=== PATIENT | female | born 1985 | race Caucasian/White ===

== ENCOUNTER → 2023-03-17 12:44 | Outpatient (BNVA) | payer OTHER, SELFPAY | PROVIDERS: PCP Internal Medicine; Visit Provider Physician Assistant Surgical ==

== ENCOUNTER 2023-05-03 08:31 | Outpatient (AMB) | payer OTHER, SELFPAY ==
--- OUTSIDE RECORDS SUMMARY | 2023-05-03 08:32 | XMS_ITS | Continuity of Care Document ---
Author Name Unknown Organization [facility] oenterology Address [address] [place] [address]- Care Team Providers Care Radiation Oncology Therapist Name Role Phone Paulo VILLAGRAN, Melissa Anand Primary Care Physician Encounter [facility] [place] Date(s): 10/26/20 - 11/25/20 [facility] [address] [place] [address]- Allergies, Adverse Reactions, Alerts Substance Reaction Severity Status NKA Active Immunizations Given and Recorded Vaccine Date Status Refusal Reason influenza virus vaccine, inactivated 1 06/27/12 Gi aristeo Boostrix (Tdap) (oldterm) 2 06/27/12 Given 1Admin Note: VIS sheet given 2Admin Note: VIS sheet given Medications Levsin 0.125 mg oral tablet 0.125 mg, 1, tablet, By Mouth, 2 times a day, PRN, # 40 tablet, Refills 1, Tot. Refills 1, Maintenance, for spasm, 08/13/20 16:47:00 EDT, Route to Pharmacy Electronically, [facility]/pharmacy #[id number], Partialfill upon patient request if the prescription is fo... Start Date: 08/13/20 Status: Ordered Protonix 40 mg oral delayed release tablet 1 tablet = 40 mg, By Mouth, Daily, # 30 tablet, 2 Refills, Maintenance, 08/13/20 16:47:00 EDT, EC Tablet, 161.5, cm, 04/02/20 11:23:00 EST, Height, 150.5, kg, 09/16/19 16:17:00 EDT, Dry Weight Start Date: 08/13/20 Status: Ordered Problem List Condition Effective Dates Status Health Status Inform ant Anxiety and depression(Confirmed) Active Gestational diabetes(Confirmed) Active Hemorrhoids(Confirmed) Active Left lumbar radiculopathy(Confirmed) Active atony of uterus w ith hemorrhage, delivered(Confirmed) 07/16/12 Active Vertigo(Confirmed) Active Social History Social History Type Response Smoking Status Never smoker; Tobacc o user in household: No entered on: 11/08/16 Sex
--- OUTSIDE RECORDS SUMMARY | 2023-05-03 08:32 | XMS_ITS | Continuity of Care Document ---
Author Name Unknown Organization [facility] ter Address [address] [place] [address]- Care Team Providers Care Grocery Checker Name Role Phone Elijah VALLE, Cristy I Primary Care Physician Encounter [facility] [place] Date(s): 09/16/19 - 09/16/[address] [address] Encounter Diagnosis Right upper quadrant pain(Final) - 09/16/19 Discharge Disposition: A-D/C Home Attending Physician: Manjeet Santiago DO Admitting Physician: Manjeet Santiago DO Referring Physician: Not on Staff, Referring MD Allergies, Adverse Reactions, Alerts Substance Reaction Severity Status NKA Active Immunizations Given and Recorded Vaccine Date Status Refusal Reason influenza virus vaccine, inactivated 1 06/27/12 Gi aristeo Boostrix (Tdap) (oldterm) 2 06/27/12 Given 1Admin Note: VIS sheet given 2Admin Note: VIS sheet given Medications Multivitamin Daily, 0 Refills, Maintenance, 04/10/19 17:04:53 EST Start Date: 04/10/19 Status: Ordered sertraline 50 mg oral tablet 1 tablet, By Mouth, Daily, # 30 tablet, 4 Refills, Maintenance, 08/28/19 12:11:00 EDT, [id number], 163, cm, 07/26/19 8:59:00 EST, Height, 130.6, kg, 04/10/19 16:58:00 EST, Dry Weight Start Date: 08/28/19 Status: Ordered Problem List Condition Effective Dates Status Health Status Inform ant Anxiety and depression(Confirmed) Active Gestational diabetes(Confirmed) Active Hemorrhoids(Confirmed) Active Left lumbar radiculopathy(Confirmed) Active atony of uterus w ith hemorrhage, delivered(Confirmed) 07/16/12 Active Vertigo(Confirmed) Active Vital Signs Most recent to oldest [Reference Range]: 1 2 3 Height 163 cm (09/16/19 4:17 PM) 163 cm (09/16/19 1:56 PM) Weight 150.5 kg (09/16/19 4:17 PM) 150.5 kg (09/16/19 1:56 PM) Oxygen Saturation [94-100 %] 99 % (09/16/19 4:17 PM) 100 % (09/16/19 1:56 PM) 100 % (09/16/19 1:53 PM) Pulse Rate [55-90 bpm] 76 bpm (09/16/19 4:17 PM) 112 bpm *H* (09/16/19 1:56 PM) 86 bpm (09/16/19 1:53 PM) Body Mass Index [18.5-24.99] 56.64 *>HHI* (09/16/19 4:17 PM) 56.64 *>HHI* (09/16/19 1:56 PM) Blood Pressure [90-138/55-84 mm Hg] 119/60mm Hg (09/16/19 4:17 PM) 134/82mm Hg (09/16/19 1:56 PM) Respiratory Rate [16-30 br/min] 20 br/min (09/16/19 4:17 PM) 18 br/min (09/16/19 1:56 PM) Temperature [96.8-100.4 DegF] 98.0 DegF (09/16/19 4:17 PM) 98.0 DegF (09/16/19 1:56 PM) Mode of Delivery (Oxygen) Room air (09/16/19 4:17 PM) Room air (09/16/19 1:56 PM) Room air (09/16/19 1:53 PM) Blood pressure sites Arm, left (09/16/19 4:17 PM) Arm, right (09/16/19 1:56 PM) Temperature Route Oral (09/16/19 4:17 PM) Oral (09/16/19 1:56 PM) Dry Weight 150.5 kg (09/16/19 4:17 PM) 150.5 kg (09/16/19 1:56 PM) Weight Obtained Via Standing scale (09/16/19 1:56 PM) Dry Weight Obtained Via Standing scale (09/16/19 1:56 PM) Social History Social History Type Response Smoking Status Never smoker; Tobacc o user in household: No entered on: 11/08/16 Sex
--- OUTSIDE RECORDS SUMMARY | 2023-05-03 08:32 | XMS_ITS | Continuity of Care Document ---
Author Name Unknown Organization [facility] oenterology Address Unknown Care Team Providers Care Fire Equipment Operator Name Role Phone Paulo VILLAGRAN, Melissa Anand Primary Care Physician Encounter [facility] [place] Date(s): 03/18/21 - 03/25/21 [facility] Encounter Diagnosis Anxiety and depression(Discharge Diagnosis) - 03/18/21 Abdominal pain(Discharge Diagnosis) - 03/18/21 Attending Physician: Daniella Tavares MD Admitting Physician: Daniella Tavares MD Referring Physician: Melissa Bates MD Allergies, Adverse Reactions, Alerts Substance Reaction Severity Status NKA Active Immunizations Given and Recorded Vaccine Date Status Refusal Reason influenza virus vaccine, inactivated 1 06/27/12 Gi aristeo Boostrix (Tdap) (oldterm) 2 06/27/12 Given 1Admin Note: VIS sheet given 2Admin Note: VIS sheet given Medications hyoscyamine 0.125 mg sublingual tablet 1 tablet = 0.125 mg, Sublingual, Every 4 hours, # 60 tablet, 1 Refills, Maintenance, 03/18/21 13:54:00 EDT, Tablet, [facility]/pharmacy #[id number], Partial fill upon patient request if the prescription is for a schedule II opioid drug., 162, cm, 10/09/20 8:02:00... Start Date: 03/18/21 Status: Ordered Protonix 40 mg oral delayed release tablet 1 tablet = 40 mg, By Mouth, Daily, # 30 tablet, 2 Refills, Maintenance, 03/18/21 13:53:00 EDT, EC Tablet, 162, cm, 10/09/20 8:02:00 EDT, Height, 145.1, kg, 10/09/20 8:02:00 EDT, Dry Weight Start Date: 03/18/21 Stop Date: 06/16/21 Status: Ordered Problem List Condition Effective Dates Status Health Status Inform ant Anxiety and depression(Confirmed) Active Gestational diabetes(Confirmed) Active Hemorrhoids(Confirmed) Active Left lumbar radiculopathy(Confirmed) Active atony of uterus w ith hemorrhage, delivered(Confirmed) 07/16/12 Active Vertigo(Confirmed) Active Diagnosis Diagnosis Type Effective Dates Health Status Clinical Service Informant Anxiety and depression Discharge Diagnosis 03/18/21 Non-Specified Abdominal pain Discharge Diagnosis 03/18/21 Non-Specified Social History Social History Type Response Smoking Status Never smoker; Tobacc o user in household: No entered on: 11/08/16 Sex
--- OUTSIDE RECORDS SUMMARY | 2023-05-03 08:32 | XMS_ITS | Continuity of Care Document ---
Author Name Unknown Organization [facility]enter[facility] Address [address] [place] [address]- Care Team Providers Care Hand Alterations Tailor Name Role Phone Paulo VILLAGRAN, Melissa Anand Primary Care Physician En[place] [facility] [place] Date(s): 09/09/20 - 09/16/20 [facility] Gastroenterology [address] [place] [address]- Attending Physician: Daniella Tavares MD Admitting Physician: [...] 08/13/20 16:47:00 EDT, Route to Pharmacy Electronically, [facility]/pharmacy #[id number], Partialfill upon patient request if the prescription is fo... Start Date: 08/13/20 Status: Ordered Protonix 40 mg oral delayed release tablet 1 tablet = 40 mg, By Mouth, Daily, # 30 tablet, 2 Refills, Maintenance, 08/13/20 16:47:00 EDT, EC Tablet, 161.5, cm, 04/02/20 11:23:00 EST, Height, 150.5, kg, 09/16/19 16:17:00 EDT, Dry Weight Start Date: 3/25/21 Status: Ordered Problem List Condition Effective Dates Status Health Status Inform ant Anxiety and depression(Confirmed) Active Gestational diabetes(Confirmed) Active Hemorrhoids(Confirmed) Active Left lumbar radiculopathy(Confirmed) Active atony of uterus w ith hemorrhage, delivered(Confirmed) 07/16/12 Active Vertigo(Confirmed) Active Social History Social History Type Response Smoking Status Never smoker; Tobacc o user in household: No entered on: 11/08/16 Sex
--- OUTSIDE RECORDS SUMMARY | 2023-05-03 08:32 | XMS_ITS | Continuity of Care Document ---
Author Name Unknown Organization [facility] oenterology Address [address] [place] [address]- Care Team Providers Care Mineral Economist Name Role Phone Paulo VILLAGRAN, Melissa Anand Primary Care Physician [place] [facility] [place] - 12/18/20 [facility] [address] [place] [address]- Attending Physician: Daniella Tavares MD Admitting Physician: [...] 08/13/20 16:47:00 EDT, Route to Pharmacy Electronically, [facility]/pharmacy #[id number], Partialfill upon patient request if the [...]
--- OUTSIDE RECORDS SUMMARY | 2023-05-03 08:32 | XMS_ITS | Continuity of Care Document ---
Author Name Unknown Organization [facility] ter Address [address] [place] [address]- Care Team Providers Care Jackscrew Worker Name Role Phone Sebastien VALLE, Aranza Mohan Primary Care Physician Encounter [facility] [place] Date(s): 06/14/21 - 06/14/[address] [address]- Encounter Diagnosis COVID-19(Final) - 06/14/21 COVID-19(Final) - 06/14/21 Discharge Disposition: A-D/C Home Attending Physician: Dagoberto Casas MD Admitting Physician: Dagoberto Casas MD Referring Physician: Not on Staff, Referring MD Allergies, Adverse Reactions, Alerts No Known Allergies Immunizations Given and Recorded Vaccine Date Status Refusal Reason influenza virus vaccine, inactivated 1 06/27/12 Gi aristeo Boostrix (Tdap) (oldterm) 2 06/27/12 Given 1Admin Note: VIS sheet given 2Admin Note: VIS sheet given Medications nabumetone 750 mg oral tablet 1 tablet, By Mouth, 2 times a day, # 60 tablet, 0 Refills, [id number], 163, cm, 04/28/21 9:26:00 EST, Height, 136.1, kg, 04/22/21 0:27:00 EST, Dry Weight Start Date: 05/27/21 Status: Ordered pantoprazole 40 mg oral delayed release tablet 1 tablet, By Mouth, Daily, # 90 tablet, 3 Refills, 163, cm, 04/28/21 9:26:00 EST, Height, 136.1, kg, 04/22/21 0:27:00 EST, Dry Weight Start Date: 06/09/21 Status: Ordered Problem List Condition Effective Dates Status Health Status Inform ant Anxiety and depression(Confirmed) Active Gestational diabetes(Confirmed) Active Hemorrhoids(Confirmed) Active Left lumbar radiculopathy(Confirmed) Active atony of uterus w ith hemorrhage, delivered(Confirmed) 07/16/12 Active Severe obesity(Confirmed) Active Vertigo(Confirmed) Active Results Radiology Reports * Exam Date Time Procedure Performing Provider Status 06/14/21 12:12 PM Chest Portable Bein , Delma; Auth (Evelio ified) Notes: (Chest Portable) Reason For Exam: Chest Pain;Other: RESULT: Chest Portable Chest Portable CLINICAL INDICATION: Hx of Present Illness: here for palps, covid+ on the and since then has had some increased sob. COMPARISON: None available. FINDINGS: The cardiac silhouette is within normal limits. Hilar and mediastinal contours are normal. The lungs are clear. There is no pleural effusion, pneumothorax, or evidence of CHF. No acute osseous abnormality is noted. IMPRESSION: No acute cardiopulmonary process. WSN: [id number] Ordering Physician: Silvestre To Dictated By: Candi Miller MD Dictated Date/Time: 06/14/21 12:24 p Reviewed By: Candi Miller MD Signed By: Candi Miller MD Signed Date/Time: 06/14/21 12:24 pm Transcribed By: LEWIS Transcribed Date/Time: 06/14/21 12:24 pm Vital Signs Most recent to oldest [Reference Range]: 1 2 3 Oxygen Saturation [94-100 %] 98 % (06/14/21 10:24 AM) 100 % (06/14/21 10:04 AM) 100 % (06/14/21 9:56 AM) Pulse Rate [55-90 bpm] 99 bpm *H* (06/14/21 10:24 AM) 97 bpm *H* (06/14/21 10:04 AM) 110 bpm *H* (06/14/21 9:56 AM) Blood Pressure [90-138/55-84 mm Hg] 136/90mm Hg (06/14/21 10:24 AM) 146/87mm Hg *H* (06/14/21 10:04 AM) Respiratory Rate [16-30 br/min] 20 br/min (06/14/21 10:24 AM) 20 br/min (06/14/21 10:04 AM) 18 br/min (06/14/21 9:56 AM) Temperature [96.8-100.4 DegF] 98.9 DegF (06/14/21 10:24 AM) 98.5 DegF (06/14/21 10:04 AM) Mode of Delivery (Oxygen) Room air (06/14/21 10:24 AM) Room air (06/14/21 10:04 AM) Room air (06/14/21 9:56 AM) Blood pressure sites Arm, left (06/14/21 10:24 AM) Arm, right (06/14/21 10:04 AM) Temperature Route Oral (06/14/21 10:24 AM) Oral (06/14/21 10:04 AM) Social History Social History Type Response Smoking Status Never smoker; Tobacc o user in household: No entered on: 11/08/16 Sex
--- OUTSIDE RECORDS SUMMARY | 2023-05-03 08:32 | XMS_ITS | Continuity of Care Document ---
Author Name Unknown Organization [facility] Address [address] [place] [address]- Care Team Providers Care Fiberglass Boat Assembly Supervisor Name Role Phone Melissa Bates MD Primary Care Physician Encounter [facility] [place] Date(s): 10/09/20 - 10/09/[address] [address]- Discharge Disposition: A-D/C Home Attending Physician: Daniella Tavares MD Admitting Physician: Daniella Tavares MD Referring Physician: Daniella Tavares MD Allergies, Adverse Reactions, Alerts Substance Reaction [...] 08/13/20 16:47:00 EDT, Route to Pharmacy Electronically, [facility]/pharmacy #[id number], Partialfill upon patient request if the [...] oldest [Reference Range]: 1 2 3 Height 162 cm (10/09/20 8:02 AM) Weight 145.1 kg (10/09/20 8:02 AM) Oxygen Saturation [94-100 %] 96 % (10/09/20 10:10 AM) 94 % (10/09/20 10:05 AM) 94 % (10/09/20 10:00 AM) Pulse Rate [55-90 bpm] 92 bpm *H* (10/09/20 8:02 AM) Body Mass Index [18.5-24.99] 55.29 *>HHI* (10/09/20 8:02 AM) Blood Pressure [90-138/55-84 mm Hg] 108/84mm Hg (10/09/20 10:10 AM) 110/66mm Hg (10/09/20 10:05 AM) 113/66mm Hg (10/09/20 10:00 AM) Respiratory Rate [16-30 br/min] 22 br/min (10/09/20 10:10 AM) 20 br/min (10/09/20 10:05 AM) 21 br/min (10/09/20 10:00 AM) Temperature [96.8-100.4 DegF] 98.2 DegF (10/09/20 8:02 AM) Mode of Delivery (Oxygen) Room air (10/09/20 10:35 AM) Room air (10/09/20 8:02 AM) Blood pressure sites Arm, left (10/09/20 9:55 AM) Arm, left (10/09/20 8:02 AM) Temperature Route Temporal (10/09/20 8:02 AM) Dry Weight 145.1 kg (10/09/20 8:02 AM) Weight Obtained Via Standing scale (10/09/20 8:02 AM) Dry Weight Obtained Via Standing scale (10/09/20 8:02 AM) Social History Social History Type Response Smoking Status Never smoker; Tobacc o user in household: No entered on: 11/08/16 Sex
--- OUTSIDE RECORDS SUMMARY | 2023-05-03 08:32 | XMS_ITS | Continuity of Care Document ---
Author Name Unknown Organization [facility] oenterology Address [address] [place] [address]- Care Team Providers Care Shift Nurse Manager Name Role Phone Paulo VILLAGRAN, Melissa Anand Primary Care Physician Encounter [facility] [place] Date(s): 11/18/20 - 12/18/20 [facility] G[facility]enterology [address] [place] [address]- Attending Physician: Jeanette Rees Admitting Physician: Jeanette Rees Referring Physician: AdmtrJeanette Allergies, Adverse Reactions, Alerts Substance Reaction Severity [...] 16:47:00 EDT, Route to Pharmacy Electronically, [facility]/pharmacy #[id number], Partialfill upon patient request if the [...]
--- OUTSIDE RECORDS SUMMARY | 2023-05-03 08:32 | XMS_ITS | Continuity of Care Document ---
Author Name Unknown Organization [facility] Address [address] [place] [address]- Care Team Providers Care Mold Capper Helper Name Role Phone Paulo VILLAGRAN, Melissa Anand Primary Care Physician Encounter [facility] [place] Date(s): 10/28/20 - 12/06/[address] [address]- Attending Physician: Daniella Tavares MD Admitting Physician: Daniella Tavares MD Allergies, Adverse Reactions, [...] 08/13/20 16:47:00 EDT, Route to Pharmacy Electronically, [facility]/pharmacy #[id number], Partialfill upon patient request if [...]
--- OUTSIDE RECORDS SUMMARY | 2023-05-03 08:33 | XMS_ITS | Continuity of Care Document ---
Author Name Unknown Organization [facility] oenterology Address Unknown Care Team Providers Care Manager Supply Chain Planning Name Role Phone Paulo VILLAGRAN, Melissa Anand Primary Care Physician Encounter [facility] [place] Date(s): 03/18/21 - 04/17/21 [facility] Attending Physician: Jeanette Rees Admitting Physician: AdmtrJeanette Referring Physician: Admtr, Jeanette Allergies, Adverse Reactions, Alerts Substance Reaction Severity [...] 1 Refills, Maintenance, 03/18/21 13:54:00 EDT, Tablet, [facility]/pharmacy #[id number], Partial fill upon patient request if [...]
--- OUTSIDE RECORDS SUMMARY | 2023-05-03 08:33 | XMS_ITS | Continuity of Care Document ---
Author Name Unknown Organization [facility] Address [address] [place] [address]- Care Team Providers Care Financial Aid Administrator Name Role Phone Sebastien VALLE, Aranza Mohan Primary Care Physician Encounter [facility] [place] Date(s): 03/16/21 - 05/30/[address] [address]- Attending Physician: Daniella Tavares MD Admitting Physician: [...] a day, # 60 tablet, 0 Refills, [id number], 163, cm, 04/28/21 9:26:00 EST, Height, 136.1, kg, 04/22/21 0:27:00 EST, Dry Weight Start Date: 05/27/21 Status: Ordered Problem List Condition Effective Dates Status Health Status Inform ant Anxiety and depression(Confirmed) Active Gestational diabetes(Confirmed) Active Hemorrhoids(Confirmed) Active Left lumbar radiculopathy(Confirmed) Active atony of uterus w ith hemorrhage, delivered(Confirmed) 07/16/12 Active Severe obesity(Confirmed) Active Vertigo(Confirmed) Active Social History Social History Type Response Smoking Status Never smoker; Tobacc o user in household: No entered on: 11/08/16 Sex
--- OUTSIDE RECORDS SUMMARY | 2023-05-03 08:33 | XMS_ITS | Continuity of Care Document ---
Author Name Unknown Organization [facility] oenterology Address [address] [place] [address]- Care Team Providers Care Software Quality Tester Name Role Phone Paulo VILLAGRAN, Melissa Anand Primary Care Physician En[place] [facility] [place] Date(s): 10/05/20 - 11/04/20 [facility] [address] [place] [address]- Allergies, Adverse Reactions, Alerts Substance Reaction Severity [...] 08/13/20 16:47:00 EDT, Route to Pharmacy Electronically, [facility]/pharmacy #[id number], Partialfill upon patient request if the prescription [...]
--- OUTSIDE RECORDS SUMMARY | 2023-05-03 08:33 | XMS_ITS | Continuity of Care Document ---
Author Name Unknown Organization [facility] ter Address [address] [place] [address]- Care Team Providers Care Cutch Cleaner Name Role Phone Not on Staff, PCP Primary Care Physician Unavail able Encounter [facility] Date(s): 04/20/21 - 04/20/[address] [address]- Discharge Disposition: A-D/C Walkout Attending Physician: Not on Staff, Attending MD Admitting Physician: Not on Staff, Admitting MD Referring Physician: Not on Staff, Referring [...] 1 Refills, Maintenance, 03/18/21 13:54:00 EDT, Tablet, [facility]/pharmacy #[id number], Partial fill upon patient request [...] 07/16/12 Active Severe obesity(Confirmed) Active Vertigo(Confirmed) Active Vital Signs Most recent to oldest [Reference Range]: 1 2 Height 163 cm (04/20/21 5:50 PM) 163 cm (04/20/21 4:55 PM) Weight 136.5 kg (04/20/21 5:50 PM) 136.5 kg (04/20/21 4:55 PM) Oxygen Saturation [94-100 %] 99 % (04/20/21 5:50 PM) Pulse Rate [55-90 bpm] 104 bpm *H* (04/20/21 5:50 PM) Body Mass Index [18.5-24.99] 51.38 *>HHI* (04/20/21 5:50 PM) 51.38 *>HHI* (04/20/21 4:55 PM) Blood Pressure [90-138/55-84 mm Hg] 132/ 80mm Hg (04/20/21 5:50 PM) Respiratory Rate [16-30 br/min] 18 br/mi n (04/20/21 5:50 PM) Temperature [96.8-100.4 DegF] 98.9 DegF (04/20/21 5:50 PM) Mode of Delivery (Oxygen) Room air (04/20/21 5:50 PM) Blood pressure sites Arm, right (04/20/21 5:50 PM) Temperature Route Oral (04/20/21 5:50 PM) Dry Weight 136.5 kg (04/20/21 5:50 PM) 136.5 kg (04/20/21 4:55 PM) Social History Social History Type Response Smoking Status Never smoker; Tobacc o user in household: No entered on: 11/08/16 Sex
--- OUTSIDE RECORDS SUMMARY | 2023-05-03 08:33 | XMS_ITS | Continuity of Care Document ---
Author Name Unknown Organization [facility] ter Address [address] [place] [address]- Care Team Providers Care Violin Teacher Name Role Phone Verna VILLAGRAN, [place] Primary Care Physician Encounter [facility] [place] Date(s): 02/16/22 - 03/23/[address] [address]- Attending Physician: Joby Mauricio MD Allergies, Adverse Reactions, Alerts No Known Allergies Immunizations Given and Recorded Vaccine Date Status Refusal Reason tetanus/diphtheria/pertussis, acel(Tdap) 07/08/21 Recorded SARS-CoV-2 (COVID-19) mRNA BNT-162b2 vac 02/02/21 Recorded SARS-CoV-2 (COVID-19) mRNA BNT-162b2 vac 01/12/21 Recorded influenza virus vaccine, inactivated 1 06/27/12 Gi aristeo Boostrix (Tdap) (oldterm) 2 06/27/12 Given 1Admin Note: VIS sheet given 2Admin Note: VIS sheet given Medications ibuprofen 800 mg oral tablet 800 mg, 1, tablet, By Mouth, 3 times a day, # 90 tablet, Refills 0, Maintenance, 02/16/22 14:30:00 EDT, Partial fill upon patient request if the prescription is for a schedule II opioid drug. Start Date: 02/16/22 Status: Ordered Problem List Condition Confirmation Course Effective Dates Status H ealth Status Informant Anxiety and depression Confirmed Active Gestational diabetes Confirmed Active Hemorrhoids Confirmed Active Left lumbar radiculopathy Confirmed Active atony of uterus with hemorrhage, delivered Confirmed 07/16/12 Active Severe obesity Confirmed Active Fatty liver Confirmed Active Vertigo Confirmed Active Social History Social History Type Response Smoking Status Never smoker; Tobacc o user in household: No entered on: 11/08/16 Sex Patient Care team information Personnel Name: Verna VILLAGRAN, [place] Address: Address: [address] [place] [id number]
--- OUTSIDE RECORDS SUMMARY | 2023-05-03 08:33 | XMS_ITS | Continuity of Care Document ---
Author Name Unknown Organization [facility] Address Adult Weight Managem ent [address] [place] [address]- Care Team Providers Care Lead Man Over All Dies In Pattern Shop Name Role Phone Paulo VILLAGRAN, Melissa Anand Primary Care Physician Encounter [facility] Date(s): 09/15/20 - 10/15/20 [facility] Adult Weight Management [address] [place] [address]- Allergies, Adverse Reactions, Alerts Substance Reaction Severity [...] 08/13/20 16:47:00 EDT, Route to Pharmacy Electronically, [facility]/pharmacy #[id number], Partialfill upon patient request if the prescription [...]
[2023-05-03 15:16] VITALS: BMI 58.5
--- NOTE | 2023-05-03 15:16 | A.OFFVIS_ITS ---
Intake VS Expanded 05/03/23 15:16 Height 5 ft 4 in Weight 341 lb BMI 58.5 Body Fat % 48.7 Body Fat Mass 166 Fat Free Mass 174.8 Visceral Fat Rating 19 Body Water Mass 125.2 Basal Metabolic Rate/Score 2,545 Intake Visit Reasons: TV BELL SPINNER SOUSAPHONES SWL BMI 48.7 Allergies No Known Allergies Allergy (Verified 05/03/23 15:17) Medication List - Last Reconciled 05/03/23 by Logan Estrada MD [MULTIVITAMIN PO] [OMEGA 3 PO] [VITAMIN B12 PO] HPI TV BELL SPINNER SOUSAPHONES SWL BMI 48.7 HPI Details Start time: 1.30m, End time: 2.30pm ?I spent 50 minutes speaking with the patient on the phone plus an additional 10 minutes reviewing and updating records for a total of 60 minutes HPI Comments History of Present Illness Details Previous weight loss efforts: High protein self diet: 200lbs loss Wakes up: 6am, Sleeps: 11pm Breakfast: skips Lunch: skips Dinner: 5-6pm (vegan diet) Snacks: none Exercise: has a stationary bike Fluids: Coffee: 1/days, tea/juice/soda/ETOH: none PFSH Medical History (Updated 05/03/23 @ 13:17 by Logan Estrada MD) Morbid obesity Surgical History (Updated 03/17/23 @ 13:23 by Chary Parra CMA) Hx of bladder endoscopy Hx of tonsillectomy Hx of section Family History (Updated 03/17/23 @ 13:26 by Chary Parra CMA) Mother Bipolar 1 disorder Schizo affective schizophrenia Hypertension High cholesterol Prediabetes Father High cholesterol Son ADHD Son Intellectual delay Daughter No problems noted. Social History (Updated 03/17/23 @ 13:23 by Chary Parra CMA) Alcohol intake: never Patient Tobacco Use Status: Never used Tobacco Assessment & Plan Assessment & Plan (1) Morbid obesity: Code(s): E66.01 - Morbid (severe) obesity due to excess calories Plan: 1.? Plan for lap sleeve gastrectomy. If diaphragmatic or ventral hernias are present at time of surgery, these will be repaired laparoscopically as well. Risks and complications were discussed in detail including possible conversion to an open procedure, anastomotic leak, bleeding requiring transfusion, small bowel obstruction, , DVT and pulmonary embolism, cardiac, or pulmonary complications, as jail complications such as anastomotic ulcer, insufficient weight loss and vitamin deficiencies. I emphasized the importance of close follow-up, adherence to instructions and good communication. 2. Nutritional counseling. Start with one Isopure INFUSIONS (HALF scoop in 8oz water) at 7am-9am, one more Isopure INFUSIONS protein (buy at [employer], [employer], [employer], [facility]) shake (ONE scoop in 8oz water) at 10am-12pm, 2 protein bars (Zone Perfect protein bars, buy at [employer], ?[employer], [facility], or [employer]) at 1pm-3pm and 4pm- 6pm, dinner at 7pm (12 forks of protein and 12 forks of salad/vegetables) and one more protein bar after dinner at 9pm-11pm. So you do 2 protein shakes, 3 protein bars and one meal per day. Meal to include lean meat (beef, fish, pork, turkey, chicken), or danish yogurt, or egg whites, or beans with a salad with olive oil and fruits (berries, pears, apples, kiwi). Avoid salt, breads, potatoes, rice, pasta, desserts. 3. Each shake would be drunk slowly, like coffee in a period of 2 hours. 4. Cut each bar in 4 pieces and eat each piece in 30min ?to make each bar last 2 hours. 5. I emphasized the importance of measuring accurately the food portion and measure it when serving the food in plate 6. The meal portions include 10 full-size forks of meat and 10 full-size forks of salad. You always eat the meat portion but you can replace up to 5 forks for salad/vegetables with rice, potatoes or pasta, or a fruit ?if you like. The less you do it the better weight loss will be. 7. One full-size fork is what it can be scooped on the fork without falling aside and not what can be bit with the fork. Use regular forks like those you find in a typical restaurant. 8.? Please send me weight measurements as soon as possible and then once a week. Always include your diet and exercise plan. 9. Start stationary bike at a resistance level of 4.0 Increase level by 1.0 every 3 min to a max level of 10.0. Stay at this level for 3 min and then return to level 4.0 and repeat same steps until 300 calories are burned. Goal is to burn 2000 calories per week on exercise, which means either 300 calories daily, or 400 calories 5 days per week, or 500 calories 4 days per week, or 650 calories 3 days per week. 10. ?It is important of avoiding and for at least 18 months postoperatively and has been discussed at the infosession. 11. Goal is to lose at least 1.5-2lbs per week 12. Goal to lose 10% of your weight before surgery, which is about 34lbs. Ultimate weight goal: 307lbs before surgery 13. Please follow the diet plan exactly without any change. If you don't like something about the plan or you feel hungry you need to communicate with me so I can help you revise the plan. You should not change the plan yourself. Orders: Orders Insulin Today E66.01 - Morbid (severe) obesity due to excess calories Hemoglobin A1c Today E66.01 - Morbid (severe) obesity due to excess calories H Pylori Breath Test Today E66.01 - Morbid (severe) obesity due to excess calories Complete Blood Count Auto Diff Today E66.01 - Morbid (severe) obesity due to excess calories IRON PROFILE Today E66.01 - Morbid (severe) obesity due to excess calories Vitamin B12 and Folate Today E66.01 - Morbid (severe) obesity due to excess calories Zinc Today E66.01 - Morbid (severe) obesity due to excess calories Vitamin B1 Today E66.01 - Morbid (severe) obesity due to excess calories Vitamin A Today E66.01 - Morbid (severe) obesity due to excess calories XR chest 2V Today E66.01 - Morbid (severe) obesity due to excess calories ECG 12 lead EKG Today E66.01 - Morbid (severe) obesity due to excess calories Lipid Panel Today E66.01 - Morbid (severe) obesity due to excess calories Comprehensive Met. Panel Today E66.01 - Morbid (severe) obesity due to excess calories C Reactive Protein Today E66.01 - Morbid (severe) obesity due to excess calories TSH reflex Free T4 Today E66.01 - Morbid (severe) obesity due to excess calories Ferritin Today E66.01 - Morbid (severe) obesity due to excess calories Vitamin D 25-OH Total Today E66.01 - Morbid (severe) obesity due to excess calories US abdomen comp w elastography Today E66.01 - Morbid (severe) obesity due to excess calories FL upper GI w air Today E66.01 - Morbid (severe) obesity due to excess calories Referrals Behavioral Health Referral E66.01 - Morbid (severe) obesity due to excess calories Nutrition/Dietitian Referral E66.01 - Morbid (severe) obesity due to excess calories Telehealth Telehealth Location of provider rendering services: practice address Location of patient: address on file Patient Identification confirmed using: Name, : Yes Telehealth method: voice only Patient verbally consented to treatment: Yes Patient verbally consented to billing insurance company: Yes Patient informed of any privacy concerns related to visit: Yes Minutes spent on Phone/Video with Pt.: 60 Coding Level of Care Code Tele [facility] Pt Level 5 (86427) Diagnoses Morbid obesity E66.01 Time Spent (min) 60
== END 2023-05-03 15:30 | disposition home or self-care (01) ==
LOC: HO.HBS 08:31
PROVIDERS: PCP Internal Medicine; Visit Provider Surgery
DX: E66.01 Morbid (severe) obesity due to excess calories (principal); Z68.43 Body mass index [BMI] 50.0-59.9, adult
CPT/HCPCS: 99443

== ENCOUNTER → 2023-05-03 08:31 | Outpatient (BNVA) | payer OTHER, SELFPAY | PROVIDERS: PCP Internal Medicine; Visit Provider Surgery ==

== ENCOUNTER 2023-06-13 10:42 | Outpatient (AMB) | payer OTHER, SELFPAY ==
--- NOTE | 2023-06-13 10:35 | MHC.AMNUTRGE ---
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 She has started her surgeons nutrition plan chicken and vegetables or fish and vegetables - she is very happy with eating just protein and veg, she has always eaten this way 1-2 years vegan and Mediterranean diet , low carb Exercise: bike for and walking or sports with kids - identifies as a very active person Online classes : not completed yet Previous weight loss methods attempted Nutrrisystem, hypnosis Dietary counseling reduction Who buys your food self Who prepares/cooks your food self Meal frequency regular: breakfast, lunch and dinner Lifestyle Reads food labels Yes Food frequency Fruit: daily, Vegetables: daily, Grains/pasta/breads/cereal (carbs): daily, Meat substitutes/nuts/seeds/legumes: never, Processed foods/meats: never, Restaurants/fast foods: never, Desserts/sweets: never and Fats/oils: daily (healthy fats ) Diagnosis Nutrition problem #1 overweight/obesity As related to (etiology) #1 excess energy intake and physical inactivity As evidenced by (sign/symptom) #1 high BMI Monitoring/Goals Nutrition problem monitoring total energy intake, level of knowledge/skill, total PRO intake, total CHO intake, weight and oral fluids Outcome progress progressing Learning/Education Readiness to learn good Stages of change action Educational materials provided Yes Most Recent Diabetes Results: No Data to Display REPLACED BY [facility] Medical History (Updated 05/03/23 @ 13:17 by Logan Estrada MD) Morbid obesity Surgical History (Updated 03/17/23 @ 13:23 by Chary Parra CMA) Hx of bladder endoscopy Hx of tonsillectomy Hx of section Family History (Updated 03/17/23 @ 13:26 by Chary Parra CMA) Mother Bipolar 1 disorder Schizo affective schizophrenia Hypertension High cholesterol Prediabetes Father High cholesterol Son ADHD Son Intellectual delay Daughter No problems noted. Social History (Updated 03/17/23 @ 13:23 by Chary Parra CMA) Alcohol intake: never Patient Tobacco Use Status: Never used Tobacco Assessment & Plan Assessment & Plan (1) Morbid obesity: Code(s): E66.01 - Morbid (severe) obesity due to excess calories Plan will be seen again 06/28 10am to review classess , will likely be cleared Telehealth Telehealth Location of provider rendering services: practice address Location of patient: address on file Patient Identification confirmed using: Name, : Yes Telehealth method: video Patient verbally consented to treatment: Yes Patient verbally consented to billing insurance company: Yes Patient informed of any privacy concerns related to visit: Yes Minutes spent on Phone/Video with Pt.: 30 Coding Level of Care Code Nutr Indiv Intake (00515) Diagnoses Morbid obesity E66.01 Time Spent (min) 30
== END 2023-06-13 11:01 | disposition home or self-care (01) ==
LOC: HO.HBS 10:42
PROVIDERS: PCP Internal Medicine; Visit Provider Dietitian, Registered
DX: E66.01 Morbid (severe) obesity due to excess calories (principal)

== ENCOUNTER → 2023-06-13 10:42 | Outpatient (BNVA) | payer OTHER, SELFPAY | PROVIDERS: PCP Internal Medicine; Visit Provider Dietitian, Registered | DX: E66.01 Morbid (severe) obesity due to excess calories (principal); Z71.3 Dietary counseling and surveillance | CPT/HCPCS: 97802 ==

== ENCOUNTER 2023-06-27 07:27 | Outpatient (REF) | payer OTHER, SELFPAY ==
--- NOTE | ~2023-06-27 | XR_ITS ---
EXAMINATION: XR CHEST 2 VIEWS CLINICAL INFORMATION: Morbid obesity. COMPARISON: None. TECHNIQUE: Frontal and lateral views of the chest were obtained. FINDINGS: The heart, great vessels, pulmonary vasculature and mediastinum are normal. The lungs show no focal infiltrate, effusion or pneumothorax. There is no acute osseous abnormality. XR/XR chest 2V IMPRESSION: No active cardiopulmonary disease.
--- NOTE | 2023-06-27 07:44 | ECG_ITS ---
Test Reason : E66.01 Blood Pressure : / mmHG Vent. Rate : 070 BPM Atrial Rate : 070 BPM P-R Int : 162 ms QRS Dur : 078 ms QT Int : 388 ms P-R-T Axes : 069 020 041 degrees QTc Int : 419 ms Sinus rhythm with marked sinus arrhythmia Otherwise normal ECG No previous ECGs available Referred By: Logan Estrada Electronically Signed By:REMIGIO REY
[2023-06-27 07:51] LABS: MANUAL DIFF FLAG NO
[2023-06-27 08:18] LABS: Basophils Percent Auto 0.3 % (0-2); Eosinophils Absolute Auto 0.1 X10*3/uL (0.0-0.4); Hematocrit 41.5 % (37.0-47.0); Hemoglobin 14.1 g/dl (12.0-16.0); Imm Gran Abs Auto 0.03 X10*3/uL (0.00-0.03); Imm Gran Pct Auto 0.3 % (0.0-0.4); Lymphocytes Absolute Auto 2.7 X10*3/uL (1.2-4.9); Lymphocytes Percent Auto 30.8 % (20-40); Mean Corpuscular Hemoglobin 29.1 pg (27.0-33.0); Mean Corpuscular Volume 85.7 fL (80.0-98.0); Monocytes Absolute Auto 0.5 X10*3/uL (0.1-1.2); Monocytes Percent Auto 5.7 % (2-11); Neutrophils Absolute Auto 5.4 x10*3/uL (2.0-8.3); Neutrophils Percent Auto 61.9 % (45-73); Platelet Count 280 X10*3/uL (160-400); Red Blood Count 4.84 X10*6/uL (4.20-5.50); Red Cell Distribution Width 13.5 % (11.0-16.0); White Blood Count 8.8 X10*3/uL (4.8-10.8)
[2023-06-27 08:20] LABS: Estimated Average Glucose 108 mg/dL; Hemoglobin A1c % 5.4 % (<6.0)
[2023-06-27 08:38] LABS: Alanine Aminotransferase 18 U/L (0-31); Albumin Level 4.1 g/dL (3.5-5.0); Alkaline Phosphatase 91 U/L (39-117); Anion Gap 13 (12-20); Aspartate Amino Transferase 17 U/L (5-31); Bilirubin Total 0.4 mg/dL (0.0-1.0); Blood Urea Nitrogen 10 mg/dL (9-16); C Reactive Protein 1.44 mg/dL (< or = 0.50); Calcium 9.8 mg/dL (8.4-10.2); Carbon Dioxide 26 mmol/L (22-29); Chloride 104 mmol/L (96-108); Cholesterol 182 mg/dL (<200); Estimated Glomerular Filt Rate > 60; Glucose Random 117 mg/dL (60-115); HDL Cholesterol 52 mg/dL (>40); Iron 61 mcg/dL (30-160); LDL Cholesterol Calculated 110 mg/dL (<100); Percent Iron Saturation 17 % (15-50); Potassium 4.3 mmol/L (3.3-5.1); Sodium 139 mmol/L (135-145); Total Iron Binding Capacity 359 mcg/dL (228-428); Total Protein 7.4 g/dL (6.5-8.0); Triglycerides 100 mg/dL (<150); Unsaturated Iron Binding 298 ug/dL
[2023-06-27 09:01] LABS: Ferritin 67 ng/mL (10-122); Insulin 13 uU/mL (2-29); TSH reflex Free T4 1.63 uIU/mL (0.32-4.0); Vitamin D 25-OH Total 21.7 ng/mL (>30)
[2023-06-27 09:03] LABS: Folate 11.2 ng/mL (> or = 4.0); Vitamin B12 353 pg/mL (200-900)
[2023-06-30 12:28] LABS: Zinc 73 mcg/dL (60-130)
[2023-06-30 18:52] LABS: Vitamin A 49 mcg/dL (38-98)
[2023-07-01 16:09] LABS: Vitamin B1 10 nmol/L (8-30)
== END 2023-06-27 07:28 | disposition home or self-care (01) ==
LOC: HO.LAB 07:27
PROVIDERS: Visit Provider Surgery
DX: E66.01 Morbid (severe) obesity due to excess calories (principal)
CPT/HCPCS: 36415; 71046; 80053; 80061; 82306; 82607; 82728; 82746; 83036; 83525; 83540; 84425; 84443; 84590; 84630; 85025; 86140; 93005

== ENCOUNTER → 2023-06-27 07:44 | Outpatient (BNV) | payer OTHER, SELFPAY | PROVIDERS: Visit Provider Internal Medicine | DX: I49.8 Other specified cardiac arrhythmias (principal); E66.01 Morbid (severe) obesity due to excess calories | CPT/HCPCS: 93010 ==

== ENCOUNTER 2023-06-30 07:52 | Outpatient (AMB) | payer OTHER, SELFPAY ==
--- NOTE | 2023-06-30 09:52 | MHC.OFFVISWM ---
Intake VS Expanded 06/30/23 10:11 Height 5 ft 4 in Weight 334 lb 2 oz BMI 57.3 Body Fat % 70 Body Fat Mass 233.9 Fat Free Mass 100.2 Visceral Fat Rating 30 Body Water % 20.5 Body Water Mass 68.5 Basal Metabolic Rate/Score 1,352 Intake Visit Reasons: TV Follow Up SWL - 1ST Allergies No Known Allergies Allergy (Verified 05/03/23 15:17) HPI TV Follow Up SWL - 1ST HPI Details Start time: 9.40am, End time: 10.17am ?I spent 32 minutes speaking with the patient on the phone plus an additional 5 minutes reviewing and updating records for a total of 37 minutes HPI Comments History of Present Illness Details Overall weight loss: 6.8lbs, or 1.99% TBWL Is doing 2 Isopure protein shakes (1 scoop in water), another Isopure protein shake (1/2 scoop in water) , 2 Zone Perfect protein bars and one meal (12 forks of protein and 12 forks of salad or vegetables) Exercise: is doing stationary bike for 390 calories, 5 days per week. Also walks outside with the dog [facility] Medical History (Updated 06/30/23 @ 09:52 by Logan Estrada MD) Morbid obesity Surgical History (Updated 03/17/23 @ 13:23 by Chary Parra CMA) Hx of bladder endoscopy Hx of tonsillectomy Hx of section Family History (Updated 03/17/23 @ 13:26 by Chary Parra CMA) Mother Bipolar 1 disorder Schizo affective schizophrenia Hypertension High cholesterol Prediabetes Father High cholesterol Son ADHD Son Intellectual delay Daughter No problems noted. Social History (Updated 03/17/23 @ 13:23 by Chary Parra CMA) Alcohol intake: never Patient Tobacco Use Status: Never used Tobacco Assessment & Plan Assessment & Plan (1) Morbid obesity: Code(s): E66.01 - Morbid (severe) obesity due to excess calories Plan: 1. Continue same nutritional plan of 2 Isopure protein shakes (1 scoop in water), another Isopure protein shake (1/2 scoop in water) , 2 Zone Perfect protein bars and one meal (12 forks of protein and 12 forks of salad or vegetables) 2. Exercise: continue stationary bike but increase to 400 calories per work-out, 5 days per week. . Goal is to burn 2000 calories per week, Continue walking outside with the dog 3. Continue to send weight measurements weekly on Wednesdays Medications: New mecobalamin (vitamin B12) place tablet under tongue and allow to dissolve for at least30 secs before swallowing 1,000 mcg sublingual DAILY 90 tabs 0RF E53.8 - Deficiency of other specified B group vitamins cholecalciferol (vitamin D3) 125 mcg PO DAILY 90 caps 0RF E55.9 - Vitamin D deficiency, unspecified Telehealth Telehealth Location of provider rendering services: practice address Location of patient: address on file Patient Identification confirmed using: Name, : Yes Telehealth method: voice only Patient verbally consented to treatment: Yes Patient verbally consented to billing insurance company: Yes Patient informed of any privacy concerns related to visit: Yes Minutes spent on Phone/Video with Pt.: 37 Coding Level of Care Code Tele Est Pt Level 4 (89964) Diagnoses Morbid obesity E66.01 Time Spent (min) 37
[2023-06-30 10:11] VITALS: BMI 57.3
== END 2023-06-30 10:18 | disposition home or self-care (01) ==
LOC: HO.HBS 07:52
PROVIDERS: Visit Provider Surgery
DX: E66.01 Morbid (severe) obesity due to excess calories (principal); Z68.43 Body mass index [BMI] 50.0-59.9, adult
CPT/HCPCS: 99443

== ENCOUNTER → 2023-06-30 07:52 | Outpatient (BNVA) | payer OTHER, SELFPAY | PROVIDERS: Visit Provider Surgery ==

== ENCOUNTER 2023-07-04 09:44 | Outpatient (REF) | payer OTHER, SELFPAY ==
--- NOTE | ~2023-07-04 | US_ITS ---
EXAMINATION: US COMPLETE ABDOMEN WITH LIVER ELASTOGRAPHY CLINICAL INFORMATION: Morbid (severe) obesity due to excessive calories. COMPARISON: None available. TECHNIQUE: Real-time imaging of the abdominal viscera. Noninvasive ultrasound liver fibrosis assessment is performed using [employer] ElastPQ point quantification shear wave elastography (2D-SWE) with a C5-2 MHz transducer. Multiple elastography samples are obtained. Limited visualization due to bowel gas and body habitus. FINDINGS: PANCREAS: Limited visualization of pancreatic tail and head. Imaged portion of pancreatic body is unremarkable. ABDOMINAL AORTA: Nonaneurysmal. INFERIOR VENA CAVA: Visualized portions are normal. LIVER: Increased hepatic parenchymal heterogeneity and echogenicity could be associated with hepatocellular disease/hepatic steatosis and substantially limits visualization. Correlation with liver function tests and clinical exam recommended to determine further management. The right lobe measures 19.8 cm in length. The left lobe measures 14.6 cm in length. Portal flow is hepatopedal. Shear wave liver elastography median stiffness is 1.62 m/s (reference: normal median stiffness is 1.3 m/s or less). IQR/median stiffness to assess sampling precision is 0.09 (reference: good quality data set is IQR/median stiffness of 0.15 or less). GALLBLADDER: No gallstones. No gallbladder wall thickening. COMMON BILE DUCT: Measures 0.5 cm in diameter. RIGHT KIDNEY: No hydronephrosis. No renal calculi. Limited visualization. Possible prominent hypertrophied column of Armin, although visualization is limited. The kidney measures 13.8 cm in maximum dimension. LEFT KIDNEY: No hydronephrosis. No renal calculi. Limited visualization. The kidney measures 12.0 cm in maximum dimension. SPLEEN: Splenomegaly. The spleen measures 13.1 cm in maximum dimension. FREE FLUID: None. US/US abdomen comp w elastography IMPRESSION: 1. Generalized increase in hepatic echotexture and heterogeneity characteristic of fatty infiltration or other hepatocellular disease. Hepatomegaly. Correlation with clinical exam recommended. 2. Liver Elastography: Shear wave liver elastography median stiffness is 1.62 m/s (reference: Normal median stiffness is 1.3 m/s or less). In the absence of other known clinical signs, rules out compensated advanced chronic liver disease as per reference below. REFERENCE: Society of Radiologists in Ultrasound Liver Stiffness Thresholds (2020): LIVER STIFFNESS THRESHOLDS: *Liver Stiffness equal or less than 1.3 m/s: High probability of being normal. *Liver Stiffness less than 1.7 m/s: In the absence of other known clinical signs, rules out compensated advanced chronic liver disease. *Liver Stiffness 1.7-2.1 m/s: Suggestive of compensated advanced chronic liver disease but need further test for confirmation. *Liver Stiffness over 2.1 m/s: Rules in compensated advanced chronic liver disease. *Liver Stiffness over 2.4 m/s: Suggestive of clinically significant portal hypertension. QUALITY OF DATA SET: *IQR/Median value equal or less than 0.15 implies a quality data set. *IQR/Median value over 0.15 implies a poor quality data set. SIGNIFICANT CHANGE FROM PRIOR EXAM: Significant change if liver stiffness measurement is 10% or greater from prior exam. OTHER CONSIDERATIONS: The stage of liver fibrosis may be overestimated in the setting of acute hepatitis, liver inflammation, elevated liver function tests, hepatic vascular congestion, obstructive cholestasis, non-fasting state, and infiltrative diseases such as amyloidosis and lymphoma. In some patients with NAFLD, the liver stiffness thresholds for compensated advanced chronic liver disease may be lower. In causes other than viral hepatitis and NAFLD, liver stiffness thresholds are not well established.
== END 2023-07-04 09:45 | disposition home or self-care (01) ==
LOC: HO.US 09:44
PROVIDERS: PCP Internal Medicine; Visit Provider Surgery
DX: E66.01 Morbid (severe) obesity due to excess calories (principal)
CPT/HCPCS: 76700; 76981

== ENCOUNTER 2023-07-14 09:50 | Outpatient (REF) | payer OTHER, SELFPAY ==
--- NOTE | ~2023-07-14 | FL_ITS ---
EXAMINATION: XR FLUOROSCOPY UPPER GI WITH AIR CLINICAL INFORMATION: Preop evaluation prior to bariatric surgery COMPARISON: None TECHNIQUE: Fluoroscopic air contrast upper GI examination was performed utilizing standard techniques with thin and thick barium and effervescent granules. Numerous spot images were obtained. FINDINGS: Images of the oropharynx and hypopharynx demonstrate normal swallow mechanism with normal epiglottic inversion and soft palate elevation. No tracheal penetration, glottic or subglottic aspiration identified. No nasopharyngeal reflux present. Hypopharyngeal structures appear normal without evidence of mass or diverticulum. Mild cricopharyngeal achalasia is present. Dual and single contrast images of the esophagus demonstrate normal caliber, contour, and mucosal pattern. No evidence of stricture, mass, or ulcerations identified. Esophageal peristalsis was normal. No evidence of hiatus hernia identified. No significant gastroesophageal reflux was seen during the course of the examination and on reflux views. Dual contrast and single contrast images of the stomach demonstrated normal contour and mucosal pattern without evidence of mass, ulceration, or other abnormality. Contrast freely passed into the gastric antrum and duodenal bulb without delay. Single and air-contrast images of the duodenal bulb demonstrate no abnormality. The duodenal sweep has a normal appearance, course, and mucosal fold appearance. No malrotation. The imaged proximal jejunum has a normal fold pattern and caliber. FLUOROSCOPY TIME: 2 minutes 40 seconds Number of Spot Images: 13 Number of Cine: 6 DOSE AREA PRODUCT: 2466 uGy-m2 (microgray-meter squared) FL/FL upper GI w air IMPRESSION: 1. Mild cricopharyngeal achalasia, otherwise unremarkable upper GI series This procedure was performed by Aric Diehl PA-C, and supervised by Dr. Patel
== END 2023-07-14 09:51 | disposition home or self-care (01) ==
LOC: HO.XRAY 09:50
PROVIDERS: Visit Provider Surgery
DX: E66.01 Morbid (severe) obesity due to excess calories (principal)
CPT/HCPCS: 74246

== ENCOUNTER → 2023-07-14 09:51 | Outpatient (BNV) | payer OTHER, SELFPAY | PROVIDERS: Visit Provider Physician Assistant Surgical | DX: E66.01 Morbid (severe) obesity due to excess calories (principal); Z01.818 Encounter for other preprocedural examination | CPT/HCPCS: 74246 ==

== ENCOUNTER 2023-07-18 09:27 | Outpatient (AMB) | payer OTHER, SELFPAY ==
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
== END 2023-07-18 09:39 | disposition home or self-care (01) ==
LOC: HO.HBST 09:27
PROVIDERS: Visit Provider Counselor Mental Health
DX: F43.20 Adjustment disorder, unspecified (principal); E66.01 Morbid (severe) obesity due to excess calories
CPT/HCPCS: 90791

== ENCOUNTER → 2023-07-18 09:27 | Outpatient (BNVA) | payer OTHER, SELFPAY | PROVIDERS: Visit Provider Counselor Mental Health ==

== ENCOUNTER 2023-07-24 10:46 | Outpatient (AMB) | payer OTHER, SELFPAY ==
--- NOTE | 2023-07-24 10:43 | A.OFFVIS_ITS ---
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 was sick last nutrition appt as well chicken and vegetables or fish and vegetables - she is very happy with eating just protein and veg, she has always eaten this way 1-2 years vegan and Mediterranean diet , low carb Exercise: Minimal lately due to being sick Online classes: , reviewed completed Previous weight loss methods attempted Nutrrisystem, hypnosis Dietary counseling reduction Diagnosis Nutrition problem #1 overweight/obesity As related to (etiology) #1 excess energy intake and physical inactivity As evidenced by (sign/symptom) #1 high BMI Monitoring/Goals Nutrition problem monitoring total energy intake, level of knowledge/skill, total PRO intake, total CHO intake, weight and oral fluids Outcome progress progressing Learning/Education Readiness to learn good Stages of change action Most Recent Diabetes Results: Cholesterol 182 mg/dL (<200) 06/27/23 HDL Cholesterol 52 mg/dL (>40) 06/27/23 Triglycerides 100 mg/dL (<150) 06/27/23 Creatinine 0.72 mg/dL (0.5-1.4) 06/27/23 Blood Urea Nitrogen 10 mg/dL (9-16) 06/27/23 Sodium 139 mmol/L (135-145) 06/27/23 Potassium 4.3 mmol/L (3.3-5.1) 06/27/23 Chloride 104 mmol/L (96-108) 06/27/23 Carbon Dioxide 26 mmol/L (22-29) 06/27/23 Calcium 9.8 mg/dL (8.4-10.2) 06/27/23 AST 17 U/L (5-31) 06/27/23 ALT 18 U/L (0-31) 06/27/23 Total Protein 7.4 g/dL (6.5-8.0) 06/27/23 Albumin 4.1 g/dL (3.5-5.0) 06/27/23 [facility] Medical History (Updated 07/18/23 @ 09:35 by Caridad Pruitt) Morbid obesity Surgical History (Updated 03/17/23 @ 13:23 by Chary Parra [facility]) Hx of bladder endoscopy Hx of tonsillectomy Hx of section Family History (Updated 03/17/23 @ 13:26 by Chary Parra [employer]) Mother Bipolar 1 disorder Schizo affective schizophrenia Hypertension High cholesterol Prediabetes Father High cholesterol Son ADHD Son Intellectual delay Daughter No problems noted. Social History (Updated 03/17/23 @ 13:23 by Chary Parra [facility]) Alcohol intake: never Patient Tobacco Use Status: Never used Tobacco Assessment & Plan Assessment & Plan (1) Morbid obesity: Code(s): E66.01 - Morbid (severe) obesity due to excess calories Plan Patient is cleared from a nutrition standpoint for bariatric surgery. Educational requirements have been completed. Reviewed vitamin supplementation and commitment to protein shake for several months post surgery. Encouraged communication with office as needed Telehealth Telehealth Location of provider rendering services: practice address Location of patient: address on file Patient Identification confirmed using: Name, : Yes Telehealth method: video Patient verbally consented to treatment: Yes Patient verbally consented to billing insurance company: Yes Patient informed of any privacy concerns related to visit: Yes Minutes spent on Phone/Video with Pt.: 15 Coding Level of Care Code Nutr Indiv Subseq ([id number]) Diagnoses Morbid obesity E66.01 Time Spent (min) 15
== END 2023-07-24 10:53 | disposition home or self-care (01) ==
LOC: HO.HBS 10:46
PROVIDERS: Visit Provider Dietitian, Registered
DX: E66.01 Morbid (severe) obesity due to excess calories (principal)

== ENCOUNTER → 2023-07-24 10:46 | Outpatient (BNVA) | payer OTHER, SELFPAY | PROVIDERS: Visit Provider Dietitian, Registered | DX: E66.01 Morbid (severe) obesity due to excess calories (principal); Z71.3 Dietary counseling and surveillance | CPT/HCPCS: 97803 ==

== ENCOUNTER → 2023-07-28 08:04 | Outpatient (REF) | payer OTHER, SELFPAY ==
--- NOTE | ~2023-07-28 | NM_ITS ---
EXAMINATION: BILIARY TRACT IMAGING STUDY WITH CCK CLINICAL INFORMATION: Right upper quadrant abdominal pain.. COMPARISON: Ultrasound of the abdomen done on 07/04/2023. Barium upper GI study done on 07/14/2023.. TECHNIQUE: Serial gamma scintillation camera images were obtained over the abdomen for a total observation period of 60 minutes following the intravenous administration of 5.0 mCi Tc-99m mebrofenin. FINDINGS: There is good concentration of activity in the liver by 5 minutes post injection. Biliary activity is visualized by 10 minutes. The gallbladder is well visualized by 20 minutes. Small bowel is well visualized by 70 minutes. At 60 minutes post radiopharmaceutical injection, a 30-minute infusion of 3.0 micrograms Sincalide was then begun and an additional 40 minutes of images were obtained. There is poor emptying of the gallbladder. By the end of the study there is good clearance of activity from the liver and visualization of diffuse small bowel activity. The calculated gallbladder ejection fraction is 18% (Normal range of gallbladder ejection fraction is between 35-80%; GBEF <35% is considered biliary hypokinesia and >80% is considered biliary hyperkinesia; Ref. #1-Clinical Journal of Gastroenterology (2020) 14:1308?1317; Ref.#2-https://[email or web address]-iitksmr-[email or web address]-Gastroent [email or web address]). NM/NM hepatobiliary w pharm IMPRESSION: Visualization of the gallbladder is evidence of a patent cystic duct and strong evidence against the diagnosis of acute cholecystitis. The common bile duct is patent. Gallbladder emptying and ejection fraction are abnormal. Liver function appears normal.
== END ==
LOC: HO.NUCMED 08:04
PROVIDERS: Visit Provider Surgery
DX: R10.11 Right upper quadrant pain (principal)
CPT/HCPCS: 78227; A9537; J2805

== ENCOUNTER → 2023-07-31 09:47 | Outpatient (BNVA) | payer OTHER, SELFPAY | PROVIDERS: Visit Provider Physician Assistant Surgical | DX: Z11.0 Encounter for screening for intestinal infectious diseases (principal) | CPT/HCPCS: 99211 ==

== ENCOUNTER 2023-07-31 13:51 | Outpatient (REF) | payer OTHER, SELFPAY ==
[2023-08-06 14:28] LABS: H Pylori Breath Test Negative (Negative)
== END 2023-07-31 13:52 | disposition home or self-care (01) ==
LOC: HO.LNP 13:51
PROVIDERS: Visit Provider Surgery
DX: E66.01 Morbid (severe) obesity due to excess calories (principal)
CPT/HCPCS: 83013

== ENCOUNTER 2023-08-18 07:36 | Outpatient (AMB) | payer OTHER, SELFPAY ==
--- NOTE | 2023-08-18 11:34 | MHC.OFFVISWM ---
Intake VS Expanded 08/18/23 11:43 Height 5 ft 4 in Weight 319 lb 4 oz BMI 54.8 Body Fat % 70 Body Fat Mass 223.5 Fat Free Mass 95.8 Visceral Fat Rating 30 Body Water % 20.5 Body Water Mass 65.4 Basal Metabolic Rate/Score 1,309 Intake Visit Reasons: TV Follow Up SWL Allergies No Known Allergies Allergy (Verified 05/03/23 15:17) HPI TV Follow Up SWL HPI Details Start time: 11.28am, End time: 11.48am ?I spent 15 minutes speaking with the patient on the phone plus an additional 5 minutes reviewing and updating records for a total of 20 minutes HPI Comments History of Present Illness Details Overall weight loss: 21.6lbs, or 6.33% TBWL Is doing 2 Isopure Infusions protein shakes (one scoop for the 1st shake and one with half scoop in 8oz water), 2 Zone Perfect protein bars and one meal (12 forks of protein and 12 forks of salad or vegetables) Exercise: is doing the stationary bike for 390-410, 5 days per week [facility] Medical History (Updated 07/18/23 @ 09:35 by Caridad Pruitt) Morbid obesity Surgical History (Updated 03/17/23 @ 13:23 by Chary Parra [employer]LEMENT MECH[employer]IC) Hx of bladder endoscopy Hx of tonsillectomy Hx of section Family History (Updated 03/17/23 @ 13:26 by Chary Parra CMA) Mother Bipolar 1 disorder Schizo affective schizophrenia Hypertension High cholesterol Prediabetes Father High cholesterol Son ADHD Son Intellectual delay Daughter No problems noted. Social History (Updated 03/17/23 @ 13:23 by Chary Parra [facility]) Alcohol intake: never Patient Tobacco Use Status: Never used Tobacco Assessment & Plan Assessment & Plan (1) Morbid obesity: Code(s): E66.01 - Morbid (severe) obesity due to excess calories Plan: 1. Continue same nutritional plan of one Isopure Infusions protein shake (one scoop in 8oz water), another Isopure Infusions shake with half scoop in 8oz water, 2 Zone Perfect protein bars and one meal (12 forks of protein and 12 forks of salad or vegetables). 2. Exercise: continue the stationary bike for 390-410, 5 days per week. Try to add a 6th day of work-out. 3. Continue to send me weight measurements weekly on Wednesdays Telehealth Telehealth Location of provider rendering services: practice address Location of patient: address on file Patient Identification confirmed using: Name, : Yes Telehealth method: voice only Patient verbally consented to treatment: Yes Patient verbally consented to billing insurance company: Yes Patient informed of any privacy concerns related to visit: Yes Minutes spent on Phone/Video with Pt.: 20 Coding Level of Care Code Tele Est Pt Level 3 (66726) Diagnoses Morbid obesity E66.01 Time Spent (min) 20
[2023-08-18 11:43] VITALS: BMI 54.8
== END 2023-08-18 11:49 | disposition home or self-care (01) ==
LOC: HO.HBS 07:36
PROVIDERS: Visit Provider Surgery
DX: E66.01 Morbid (severe) obesity due to excess calories (principal); Z68.43 Body mass index [BMI] 50.0-59.9, adult
CPT/HCPCS: 99442

== ENCOUNTER → 2023-08-18 07:36 | Outpatient (BNVA) | payer OTHER, SELFPAY | PROVIDERS: Visit Provider Surgery | DX: E55.9 Vitamin D deficiency, unspecified (principal); E53.8 Deficiency of other specified B group vitamins; E66.01 Morbid (severe) obesity due to excess calories ==